=== PATIENT | male | born 1985 | race Hispanic/Latino ===

== ENCOUNTER 2018-08-12 13:00 | Outpatient (RCR) | payer OTHER | END 2018-08-14 | LOC: PT 13:00 | PROVIDERS: ATTEND Neurological Surgery | DX: M51.24 Other intervertebral disc displacement, thoracic region (principal); M54.6 Pain in thoracic spine; M53.84 Other specified dorsopathies, thoracic region ==

== ENCOUNTER 2018-08-15 17:13 | Outpatient (RCR) | payer OTHER | END 2018-09-14 | LOC: PT 17:13 | PROVIDERS: ATTEND Neurological Surgery | DX: M51.24 Other intervertebral disc displacement, thoracic region (principal) ==